=== PATIENT | male | born 1950 | race Caucasian/White ===

== ENCOUNTER 2024-04-04 17:32 | Inpatient (IN) ==
[2024-04-04] MEDS ORDERED: GLUCOPHAGE XR 24-HR PO ONE (17:37)
[2024-04-04] MEDS ORDERED: XYLOCAINE 2 % (PLAIN) ONE ×2 (17:37)
[2024-04-04] MEDS ORDERED: KETAMINE HCL ONE ×2 (17:37)
[2024-04-04] MEDS ORDERED: PRECEDEX INJ VIAL ONE (17:37)
[2024-04-04] MEDS ORDERED: CLEOCIN VIAL 600 MG 900 MG in D5W 50 ML IV 50 ML IV ONE (17:38)
[2024-04-04 19:14] LABS: BASOPHILS % (AUTO) 0.6 % (0.2-1.0); EOSINOPHILS % (AUTO) 0.8 % (0.9-2.9); HEMATOCRIT 35.5 % (42.0-54.0); HEMOGLOBIN 11.9 g/dL (13.5-18.0); LYMPHOCYTES # (AUTO) 2.2 X10^3/uL (1.3-2.9); LYMPHOCYTES % (AUTO) 37.8 % (21.0-51.0); MEAN CORPUSCULAR HEMOGLOBIN 28.6 pg (27.0-34.0); MEAN CORPUSCULAR HGB CONC 33.4 g/dL (33.0-35.0); MEAN CORPUSCULAR VOLUME 85.6 fL (80.0-100.0); MONOCYTES # (AUTO) 0.7 x10^3/uL (0.3-0.8); MONOCYTES % (AUTO) 11.7 % (0.0-13.0); NEUTROPHILS # (AUTO) 2.9 x10^3/uL (2.2-4.8); NEUTROPHILS % (AUTO) 49.1 % (42.0-75.0); PLATELET COUNT 173 X10^3/uL (150.0-450.0); RED BLOOD COUNT 4.15 X10^6/uL (4.7-6.0); RED CELL DISTRIBUTION WIDTH 18.1 % (11.6-16.5); WHITE BLOOD COUNT 5.9 X10^3/uL (3.6-10.0)
--- NOTE | 2024-04-04 19:18 | RAD ---
EXAM: CHEST X-RAYHISTORY: Screening CXR. Preoperative evaluation for cardiac and respiratory status.TECHNIQUE: PA and lateral chest x-ray.COMPARISON: None available.FINDINGS:There is aortic atherosclerosis. The heart size and mediastinum are within normal limits. The lung gonzalez and costophrenic angles are clear. There is no acute parenchymal infiltrate, pleural effusion, or pneumothorax seen. Multilevel DDD is seen in the middle and distal thoracic spine. The visualized bony structures are otherwise within normal limits.IMPRESSION:1. No evidence for acute cardiopulmonary disease seen.2. No evidence for active tuberculosis or other communicable diseases.THIS IS AN ELECTRONICALLY VERIFIED FINAL REPORT04/04/2024 7:14 PM - Electronically signed by Elisa Ruiz MD
[2024-04-04 19:29] LABS: ALBUMIN 3.3 g/dL (3.4-5.0); CALCIUM 9.3 mg/dL (8.5-10.1); CARBON DIOXIDE 25.5 mmol/L (21-32); COR CA(FOR HYPOALB) 9.9 mg/dL (8.5-10.1); CREATININE 1.54 mg/dL (0.70-1.30); POTASSIUM 4.3 mmol/L (3.5-5.1); TOTAL PROTEIN 7.2 g/dL (6.4-8.2)
[2024-04-04] MEDS: LR 1,000 ML IV 1,000 ML IV SCH (19:38)
[2024-04-04] MEDS ORDERED: NovoLIN R (or HumuLIN R) SUBCUT PRN (19:54)
[2024-04-04] MEDS ORDERED: PATIENT'S HOME MEDICATION PO SCH (20:00)
[2024-04-04] MEDS: SNACK - Diabetic Appropriate PO SCH (21:00)
[2024-04-04] MEDS: FARXIGA PO SCH (21:41)
[2024-04-04] MEDS: GLUCOPHAGE XR 24-HR PO SCH (22:05)
[2024-04-04 22:45] VITALS: BMI 26.2
[2024-04-04] MEDS: CLEOCIN 600 MG IV PREMIX 600 MG/50 ML BAG IV SCH (23:09)
--- NOTE | 2024-04-04 23:59 | DR.CONSULT ---
CONSULT Consultation for Day of: Date: 04/04/24 Chief Complaint Chief Complaint: non-healing wound to left heel Allergies Allergies Allergy/AdvReac Type Severity Reaction Status Date / Time No Known Allergies Allergy Verified 04/04/24 18:41 History of Present Illness History of Present Illness: this is a 73 year old male with history of diabetes, hypertension and high cholesterol who stepped on a screw back in January of this year and had a injury to the left heel which has been neglected and not healing. Now with significant cellulitis of the left heel with possible abscess. Past Medical History Past Medical History: Diabetes, Dyslipidemia and Hypertension Past Surgical History Surgical History: Ortho Surgery (Back surgery recently ) Family History Family Medical History: Diabetes Mellitus, Cancer and [place] Social History Does patient currently use any type of tobacco product: No Type of Tobacco Use: None Does any household member use tobacco: No Alcohol Use: None Drug Use: Marijuana Medications Home Medications: No Known Allergies Allergy (Verified 04/04/24 18:41) Protonix 40 milligrams daily lisinopril 2.5 milligrams daily Flomax 0.4 milligrams daily Viagra 100 milligrams a day Gabapentin 300 milligrams daily [id number] milligrams daily Novulin 70/30 metformin 1000 milligrams BID Glipizide 5 milligrams daily Jardiance 25 milligrams daily Metoprolol extended release 50 milligrams daily Review of Systems Constitutional: See HPI Eyes: No Symptoms Reported ENT: No Symptoms Reported Respiratory: No Symptoms Reported Cardiovascular: No Symptoms Reported Gastrointestinal: No Symptoms Reported Genitourinary: No Symptoms Reported Musculoskeletal: See HPI Skin: See HPI Neurological: No Symptoms Reported Physical Exam Vital Signs: Vital Signs Temperature 97.5 F Pulse Rate [Left] 70 Respiratory Rate 18 Blood Pressure [Left Arm] 162/73 O2 Sat by Pulse Oximetry 97 Oriented: Normal, Time, Person and Place Eyes: Normal Ear: Normal Nose: Normal Throat: Normal Respiratory: Clear Throughout Cardiovascular: Normal and Other (palpable femoral pulses bilaterally, no other pulses palpable either leg ) : Normal Auscultation: Bowel Sounds: Normal Palpation: Normal Tenderness: Normal Skin: Wound (cellulite approximately 8 centimeters in diameter, possible abscess left heel ) Musculoskeletal: Normal Psychiatric: Normal Mood Description: Calm Affect: Normal Speech Pattern: Clear Plan (1) Atherosclerosis of [place] arteries of extremities with rest pain, right leg: Status: Acute Plan: plan CT angiogram of aorta with runoff (2) Atherosclerosis of [place] arteries of extremities with rest pain, left leg: Status: Acute Plan: s above (3) Essential (primary) hypertension: Status: Acute Plan: home meds (4) Diabetes: Status: Acute Plan: home meds (5) Abscess of left heel: Status: Acute Plan: IV antibiotics , Podiatry to drain and debrode left heel tomorrow
--- NOTE | 2024-04-05 03:00 | CT ---
PROCEDURE: CTA abdomen and pelvis with bilateral iliofemoral runoff. HISTORY: NON HEALING WOUND TO LEFT PLANTAR HEEL; DM, HTN, GERD SX: BACK . TECHNIQUE: Axial images were performed through the abdomen and pelvis with bilateral iliofemoral runo ff with the administration of IV contrast with multiplanar reformations . 3D and MIPS reconstructions were performed and reviewed. Dose reduction techniques including Automated Exposure Control (AEC) an d adjustment of mA and kV were utilized . COMPARISON: None. TECHNICAL QUALITY: Satisfactory. FINDINGS: Clear lung bases. Liver, spleen, adrenals, pancreas show no abnormality. Kidneys show normal enhancement with no mass or obstruction. Small stones in the gallbladder with no inflammation and normal biliary tree. No ascites or pneumoperitoneum. No lymphadenopathy. No bowel obstruction or inflammation. Normal appendix. Pelvis shows no masses or free fluid normal urinary bladder. No acute bony abnormality. Previous posterior fusion lower lumbar spine. Vascular [id number] atherosclerosis abdominal aorta with no aneurysm or dissection. Major branches of t he abdominal aorta are unremarkable. Iliofemoral runoff through the pelvis shows atherosclerosis and no other significant abnormality. Some mild athero sclerotic calcifications superficial femoral on the right. Mild atherosclerosis popliteal artery on the right with mild narrowing. Right trifurcation vessels s how scattered mild athero sclerotic calcifications with no occlusive disease and three-vessel runoff at the ankle. Mild atherosclerosis adductor canal superficial femoral artery on the left without significant narrow ing. Mild atherosclerosis popliteal artery on the left without significant narrowing. Trifurcation vessel s on the left shows scattered [id number] atherosclerosis. Significant stenosis involving peron eal artery proximally. Significant stenosis involving posterior tibial artery on the left. One-vess el runoff at the ankle on the left side. No significant soft tissue abnormality involving lower extremities. IMPRESSION: 1. Occluded left peroneal and posterior tibial arteries with one-vessel runoff at the ankle. 2. No other significant vascular abnormality. 3. Cholelithiasis. THIS IS AN ELECTRONICALLY VERIFIED FINAL REPORT 04/05/2024 2:47 AM - Electronically signed by Andi Marks MD
[2024-04-05 05:25] LABS: BASOPHILS % (AUTO) 0.5 % (0.2-1.0); EOSINOPHILS % (AUTO) 0.7 % (0.9-2.9); HEMATOCRIT 32.4 % (42.0-54.0); HEMOGLOBIN 10.9 g/dL (13.5-18.0); LYMPHOCYTES # (AUTO) 2.4 X10^3/uL (1.3-2.9); LYMPHOCYTES % (AUTO) 50.3 % (21.0-51.0); MEAN CORPUSCULAR HEMOGLOBIN 28.8 pg (27.0-34.0); MEAN CORPUSCULAR HGB CONC 33.5 g/dL (33.0-35.0); MEAN CORPUSCULAR VOLUME 85.8 fL (80.0-100.0); MEAN PLATELET VOLUME 8.1 fL (7.4-11.0); MONOCYTES # (AUTO) 0.6 x10^3/uL (0.3-0.8); MONOCYTES % (AUTO) 12.3 % (0.0-13.0); NEUTROPHILS # (AUTO) 1.7 x10^3/uL (2.2-4.8); NEUTROPHILS % (AUTO) 36.2 % (42.0-75.0); PLATELET COUNT 157 X10^3/uL (150.0-450.0); RED BLOOD COUNT 3.78 X10^6/uL (4.7-6.0); RED CELL DISTRIBUTION WIDTH 18.2 % (11.6-16.5); WHITE BLOOD COUNT 4.8 X10^3/uL (3.6-10.0)
[2024-04-05 05:47] LABS: ALANINE AMINOTRANSFERASE 28 Units/L (12-78); ALBUMIN 2.9 g/dL (3.4-5.0); ALKALINE PHOSPHATASE 108 Units/L (46-116); ASPARTATE AMINO TRANSFERASE 27 Units/L (15-37); BLOOD UREA NITROGEN 15 mg/dL (7-18); CALCIUM 8.9 mg/dL (8.5-10.1); CARBON DIOXIDE 24.9 mmol/L (21-32); CHLORIDE 101 mmol/L (98-107); COR CA(FOR HYPOALB) 9.8 mg/dL (8.5-10.1); CREATININE 1.34 mg/dL (0.70-1.30); GLUCOSE 106 mg/dL (65-99); POTASSIUM 3.9 mmol/L (3.5-5.1); SODIUM 134 mmol/L (136-145); TOTAL PROTEIN 6.5 g/dL (6.4-8.2); eGFR NON BLACK RACES 55 (>60)
[2024-04-05] MEDS ORDERED: CLEOCIN 600 MG IV PREMIX 600 MG/50 ML BAG IV SCH (06:00)
[2024-04-05] MEDS: NOZIN NASAL SANITIZER TP ONE (06:34)
[2024-04-05] MEDS: OMNIPAQUE 350 mg/mL 100 mL BTL 100 ML ONE (07:23)
[2024-04-05] MEDS: NS 250 ML IV 250 ML IV ONE (07:23)
[2024-04-05] MEDS: NS 100 ML IV 0 ML ONE (07:23)
[2024-04-05] MEDS: OMNIPAQUE 350 mg/mL 50 mL BTL 50 ML ONE (07:24)
[2024-04-05] MEDS: HIBICLENS WASH EXT ONE (07:24)
[2024-04-05] MEDS: TOPROL XL PO SCH (08:10)
[2024-04-05] MEDS: ZESTRIL TAB 5 MG PO SCH (08:10)
--- NOTE | 2024-04-05 09:00 | DR.CONSULT ---
CONSULT Consultation for Day of: Date: 04/05/24 Chief Complaint Chief Complaint: Left Foot Infection Allergies Allergies Allergy/AdvReac Type Severity Reaction Status Date / Time No Known Allergies Allergy Verified 04/04/24 18:41 History of Present Illness History of Present Illness: Mr. Ashley is a 73 year old Male who presented to the [facility] yesterday with a foot infection to his left foot. He stated 2 months ago he stepped on a ingris nail and had been seeing a primary care doctor who had been treating it with just antibiotics. 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 He was instructed to go to Dr. Abel for admission to [facility]. Past Medical History Past Medical History: Diabetes, Dyslipidemia and Hypertension Past Surgical History Surgical History: Ortho Surgery (Back surgery recently ) Family History Family Medical History: Diabetes Mellitus, Cancer and [place] Social History Does patient currently use any type of tobacco product: No Type of Tobacco Use: None Does any household member use tobacco: No Alcohol Use: None Drug Use: Marijuana Medications Home Medications: No Known Allergies Allergy (Verified 04/04/24 18:41) Review of Systems Constitutional: No Symptoms Reported Physical Exam Vital Signs: Vital Signs Temperature 98.3 F Pulse Rate [Left] 61 Respiratory Rate 20 Blood Pressure [Left Arm] 129/61 O2 Sat by Pulse Oximetry 94 Cardiovascular: Other (DP and PT pulses are non-palpable, left foot. CFT WNL to all digits, left foot. ) Tenderness: Other (Tender to plantar left heel at area of wound. ) Skin: Wound (Wound measuring 0.3 cm circumferential with probing and undermining and is located at the plantar left calcaneus with surrounding erythema. the wound has palpable fluctuance noted underneath. ) Musculoskeletal: Left and Foot (Full MSK exam deferred due to infection. ) Plan (1) Atherosclerosis of [place] arteries of extremities with rest pain, right leg: Status: Acute Plan: Dr. Jeff ordering CTA, will follow. (2) Atherosclerosis of [place] arteries of extremities with rest pain, left leg: Status: Acute (3) Essential (primary) hypertension: Status: Acute (4) Diabetes: Status: Acute (5) Abscess of left heel: Status: Acute Plan: - NPO - MRI being obtained. - Patient will require immediate surgery due to extent of chronic infection in left plantar heel consisting of incision and drainage with debridement of calcaneus. - Patient will be placed on OR schedule. - Currently on Clindamycin. - Will obtain intra-operative cultures. - Consent will be obtained pre-operatively.
[2024-04-05] MEDS: ANCEF VIAL 1 GRAM ONE (10:30)
[2024-04-05] MEDS: NS 100 ML IV 100 ML ONE (10:30)
[2024-04-05] MEDS: NS 1,000 ML IV 1,000 ML ONE (10:30)
[2024-04-05] MEDS: ZOFRAN INJ 4 MG VIAL ONE (10:56)
[2024-04-05] MEDS: PEPCID 20 MG VIAL ONE (10:56)
[2024-04-05] MEDS: DIPRIVAN VIAL 20 ML ONE ×2 (10:56→11:35)
[2024-04-05] MEDS: BETADINE SOLN ONE (10:56)
[2024-04-05] MEDS: VERSED ONE (10:56)
[2024-04-05] MEDS: FENTANYL VIAL INJ 100 mcg ONE (10:56)
[2024-04-05] MEDS: MARCAINE 0.25% INJ ONE (11:11)
[2024-04-05] MEDS: TOBRAMYCIN SULFATE ONE (11:11)
[2024-04-05] MEDS: VANCOMYCIN HCL ONE (11:11)
--- NOTE | 2024-04-05 11:20 | MRI ---
EXAM:EXT LOWER JOINT W/O CONHISTORY:LEFT HEEL SORE/ PT TO HAVE SURGERY TODAY ;COMPARISON:None available.TECHNIQUE:Multiplanar multisequence MRI of the left ankle was obtained utilizing standard departmental protocol.FINDINGS:Plantar aspect of the heel does demonstrate soft tissue ulceration and induration and soft tissue swelling. There is a tiny blooming artifact measuring 3 mm just superficial to the plantar fascia (image 10 sagittal T1) which may be a small foreign body. There is significant edema in this fat and this is probably insinuating edema rather than abscess. The plantar fascia does appear heterogeneous and thickened with interstitial disruption in the medial cord and perifascial edema/fasciitis. The musculature is diffusely edematous nonspecific typically incidental but myositis not excluded. Diffuse ankle and dorsal foot subcutaneous edema noted. There is bone marrow edema of the plantar aspect of the calcaneus with a moderate plantar calcaneal spur. This is nonspecific bone marrow edema and the T1 signal does appear to be relatively preserved this site, most likely this is reactive bone marrow edema, it is slightly removed from the areas of ulceration with no convincing site of low T1 signal in the bone to suggest osteomyelitis definitively.Small superior calcaneal spur. The Achilles tendon appears normal.Posterior tibialis, flexor hallucis longus and flexor digitorum longus tendons appear normal. Peroneus brevis and longus tendons appear normal.Extensor tendons appear normal. Anterior and posterior distal tibiofibular ligaments are intact. Anterior and posterior talofibular ligaments are intact. Calcaneofibular ligament intact. Deep and superficial deltoid ligaments intact. No abnormal signal within the sinus tarsi.IMPRESSION:1. Plantar ulceration at the level of the proximal fascia/heel with subcutaneous edema/cellulitis evident and concern for 3 mm foreign body just superficial to the plantar fascia at this site as above. There is bone marrow edema within the plantar aspect of the calcaneus but there is preserved T1 signal and therefore this is believed to be reactive bone marrow edema rather than osteomyelitis at this time. Proximal plantar fasciitis is evident primarily medial cord with interstitial tearing present. No definable abscess on this noncontrast study.2. Generalized ankle and dorsal foot subcutaneous edema nonspecific, cellulitis in the differential. Also, nonspecific generalized muscle edema, typically incidental, myositis not excluded.THIS IS AN ELECTRONICALLY VERIFIED FINAL REPORT04/05/2024 11:17 AM - Electronically signed by Lazaro Arora MD
[2024-04-05] MEDS: EPHEDRINE SULFATE INJ ONE (11:21)
[2024-04-05] MEDS: OFIRMEV IV 1000 MG VIAL 1,000 MG/100 ML VIAL IV ONE (12:01)
[2024-04-05] MEDS: NS 1,000 ML IV 1,000 ML IV SCH (12:21)
[2024-04-05] MEDS: DILAUDID INJ IVP PRN (12:48)
[2024-04-05] MEDS: NORCO 5/325 MG TAB PO PRN (15:05)
--- NOTE | 2024-04-06 00:34 | NOTE.SOAP ---
Soap Note Note for Day of Date of Exam: 04/05/24 Subjective Data Subjective Data: Patient in OR today and had drainage of plantar calcaneal abscess and bone biopsy and placement of antibiotic beads. Objective Data Temperature: 97.9 F Pulse Rate: 72 Respiratory Rate: 19 Blood Pressure: 140/63 O2 Sat by Pulse Oximetry: 92 Objective Data: see above CTA shows no significant stenosis of occlusion either leg proximally with 3 vessel runoff of right leg and one vessel runoff left leg Assessment Assessment: as above Plan Plan: ABIs to see if arterial intervention would be required
[2024-04-06 06:03] LABS: BASOPHILS % (AUTO) 0.3 % (0.2-1.0); EOSINOPHILS % (AUTO) 0.2 % (0.9-2.9); HEMATOCRIT 29.2 % (42.0-54.0); LYMPHOCYTES % (AUTO) 17.7 % (21.0-51.0); MEAN CORPUSCULAR HEMOGLOBIN 29.4 pg (27.0-34.0); MEAN CORPUSCULAR HGB CONC 34.3 g/dL (33.0-35.0); MEAN CORPUSCULAR VOLUME 85.7 fL (80.0-100.0); MEAN PLATELET VOLUME 7.9 fL (7.4-11.0); MONOCYTES # (AUTO) 0.7 x10^3/uL (0.3-0.8); NEUTROPHILS % (AUTO) 69.8 % (42.0-75.0); PLATELET COUNT 133 X10^3/uL (150.0-450.0); RED BLOOD COUNT 3.41 X10^6/uL (4.7-6.0); RED CELL DISTRIBUTION WIDTH 17.9 % (11.6-16.5); WHITE BLOOD COUNT 5.8 X10^3/uL (3.6-10.0)
[2024-04-06 06:15] LABS: ALANINE AMINOTRANSFERASE 26 Units/L (12-78); ALBUMIN 2.9 g/dL (3.4-5.0); ALKALINE PHOSPHATASE 103 Units/L (46-116); ASPARTATE AMINO TRANSFERASE 31 Units/L (15-37); BLOOD UREA NITROGEN 10 mg/dL (7-18); CALCIUM 8.8 mg/dL (8.5-10.1); CARBON DIOXIDE 24.8 mmol/L (21-32); CHLORIDE 96 mmol/L (98-107); COR CA(FOR HYPOALB) 9.7 mg/dL (8.5-10.1); COR NA(FOR HYPERGLY) 130 mmol/L (136-145); CREATININE 1.17 mg/dL (0.70-1.30); GLUCOSE 148 mg/dL (65-99); POTASSIUM 4.2 mmol/L (3.5-5.1); SODIUM 129 mmol/L (136-145); TOTAL PROTEIN 6.5 g/dL (6.4-8.2); eGFR NON BLACK RACES > 60 (>60)
--- NOTE | 2024-04-06 08:49 | NOTE.SOAP ---
Soap Note Note for Day of Date of Exam: 04/06/24 Subjective Data Subjective Data: Patient is resting in bed. Complaining of pain to left leg at surgical area. Denies any nausea, vomiting, fevers, chills, shortness of breath, or calf pain. Objective Data Objective Data: Left Lower Extremity Exam: Surgical dressing was taken down. The plantar incision is loosely closed for drainage of the antibiotic beads. The lateral incision is healing. Minimal purulence coming from surgical area. Surrounding tissue appears to be viable. Redressed with 4x4s, Kerlix, DANIEL, Splint. No signs or symptoms concerning for DVT, PE, or Compartment Syndrome. Assessment Assessment: 73-year-old M POD#1 s/p Incision and Drainage with debridement of calcaneus and placement of antibiotic eluding device, left Plan Plan: - NWB to LLE. - Cultures showing currently no organisms. We will continue to monitor. - On Clindamycin. - Dr. Jeff following for vascular disease, ordering ABIs than will make decision on intervention. - The surgical site is loosely closed and will require debridement with possible delayed primary closure tomorrow on 04/07/2024. - NPO order placed.
[2024-04-06] MEDS: LEVSIN/MAALOX/LIDOC VISC PO ONE (13:22)
--- NOTE | 2024-04-06 14:06 | NOTE.SOAP ---
Soap Note Note for Day of Date of Exam: 04/06/24 Subjective Data Subjective Data: S/P drainage abscess left foot and placement of antibiotic beads Had CTA showinf one vessel runoff left leg via the anterior tibial with diseased left peroneal and posterior tibial Objective Data Temperature: 100.6 F Pulse Rate: 79 Respiratory Rate: 18 Blood Pressure: 157/65 Objective Data: Left foot unchanged , mild fever Assessment Assessment: Absecss left foot , CTA shows only distal disease. Will plan ABIS to see in the one vessel runoff provides adequate flow with no proximal impediment to arterial flow left leg. If ABIs not adequate will plan on table arteriogram left leg top see if the distal flow can be approved .If necessary would do next week and currently is sick and febrile . Plan Plan: as above
[2024-04-06] MEDS ORDERED: PHARMACY CONSULT - VANCOMYCIN XX SCH (17:00)
[2024-04-06] MEDS: TYLENOL 500 MG TAB EXTRA STRENGTH PO PRN (17:21)
[2024-04-06] MEDS: VANCOMYCIN IV *PREMIX 1 G/200 ML BAG 1 G/200 ML PIGGYBACK IV SCH (17:22)
[2024-04-06] MEDS: MAALOX or MYLANTA PO PRN (23:38)
[2024-04-07] MEDS: HIBICLENS WASH EXT ONE (04:38)
[2024-04-07 06:42] LABS: BASOPHILS % (AUTO) 0.2 % (0.2-1.0); EOSINOPHILS % (AUTO) 0.3 % (0.9-2.9); HEMATOCRIT 28.1 % (42.0-54.0); HEMOGLOBIN 9.7 g/dL (13.5-18.0); LYMPHOCYTES # (AUTO) 1.5 X10^3/uL (1.3-2.9); LYMPHOCYTES % (AUTO) 27.3 % (21.0-51.0); MEAN CORPUSCULAR HEMOGLOBIN 29.9 pg (27.0-34.0); MEAN CORPUSCULAR HGB CONC 34.7 g/dL (33.0-35.0); MEAN CORPUSCULAR VOLUME 86.2 fL (80.0-100.0); MEAN PLATELET VOLUME 7.9 fL (7.4-11.0); MONOCYTES # (AUTO) 0.8 x10^3/uL (0.3-0.8); MONOCYTES % (AUTO) 14.2 % (0.0-13.0); NEUTROPHILS # (AUTO) 3.2 x10^3/uL (2.2-4.8); PLATELET COUNT 134 X10^3/uL (150.0-450.0); RED BLOOD COUNT 3.25 X10^6/uL (4.7-6.0); RED CELL DISTRIBUTION WIDTH 18.8 % (11.6-16.5); WHITE BLOOD COUNT 5.5 X10^3/uL (3.6-10.0)
[2024-04-07 06:56] LABS: ALANINE AMINOTRANSFERASE 24 Units/L (12-78); ALBUMIN 2.8 g/dL (3.4-5.0); ALKALINE PHOSPHATASE 89 Units/L (46-116); ASPARTATE AMINO TRANSFERASE 32 Units/L (15-37); BLOOD UREA NITROGEN 12 mg/dL (7-18); CALCIUM 8.5 mg/dL (8.5-10.1); CARBON DIOXIDE 21.6 mmol/L (21-32); CHLORIDE 100 mmol/L (98-107); COR CA(FOR HYPOALB) 9.5 mg/dL (8.5-10.1); CREATININE 0.92 mg/dL (0.70-1.30); GLUCOSE 80 mg/dL (65-99); POTASSIUM 3.7 mmol/L (3.5-5.1); SODIUM 134 mmol/L (136-145); TOTAL PROTEIN 6.4 g/dL (6.4-8.2); eGFR NON BLACK RACES > 60 (>60)
[2024-04-07] MEDS: ZOFRAN INJ 4 MG VIAL IVP PRN (08:25)
[2024-04-07] MEDS: NOZIN NASAL SANITIZER TP ONE (08:33)
[2024-04-07] MEDS: LEXAPRO PO SCH (10:13)
[2024-04-07] MEDS: MERREM VIAL 1 G in NS 100 ML IV 100 ML IV SCH (10:29)
[2024-04-07] MEDS: D5 LR 1,000 ML 1,000 ML IV SCH (11:42)
[2024-04-07] MEDS: DIPRIVAN VIAL 20 ML ONE (12:43)
[2024-04-07] MEDS: ZOFRAN INJ 4 MG VIAL ONE (12:44)
[2024-04-07] MEDS: PEPCID 20 MG VIAL ONE (12:44)
[2024-04-07] MEDS: REGLAN INJ 10 MG VIAL ONE (12:44)
[2024-04-07] MEDS: VERSED ONE (12:45)
[2024-04-07] MEDS: FENTANYL VIAL INJ 100 mcg ONE (12:45)
[2024-04-07] MEDS: BETADINE SOLN ONE (12:46)
[2024-04-07] MEDS: NS 1,000 ML IV 1,000 ML ONE (12:57)
[2024-04-07] MEDS: MARCAINE 0.25% INJ ONE (13:27)
[2024-04-07] MEDS: EPHEDRINE SULFATE INJ ONE (13:53)
--- NOTE | 2024-04-07 17:03 | NOTE.SOAP ---
Soap Note Note for Day of Date of Exam: 04/07/24 Subjective Data Subjective Data: Doing well after I&D left foot. CT shows only AT runoff left foot . Objective Data Temperature: 98.1 F Pulse Rate: 70 Respiratory Rate: 18 Blood Pressure: 115/54 O2 Sat by Pulse Oximetry: 97 Objective Data: Left foot cool. ABIS perfromed left leg and are effectively zero both DP and PT Assessment Assessment: Ischemic left foot s/p I & D . Plan Plan: Will plan ontable arteriogram next Tueday to see if better outflow can be performed left foot . Begin therapuetic Lovenox .
[2024-04-07] MEDS: PHARMACY COMMENT IV NR (20:20)
[2024-04-07] MEDS: ALPRAZOLAM ODT PO PRN (20:35)
[2024-04-07 20:43] LABS: CREATININE 1.02 mg/dL (0.70-1.30); VANCOMYCIN,TROUGH 8.4 ug/mL (15-20)
[2024-04-08] MEDS: RESTORIL CAP 15 MG PO PRN (00:22)
[2024-04-08 05:56] LABS: BASOPHILS % (AUTO) 0.4 % (0.2-1.0); EOSINOPHILS % (AUTO) 0.7 % (0.9-2.9); HEMATOCRIT 27.7 % (42.0-54.0); HEMOGLOBIN 9.5 g/dL (13.5-18.0); LYMPHOCYTES # (AUTO) 1.1 X10^3/uL (1.3-2.9); LYMPHOCYTES % (AUTO) 23.7 % (21.0-51.0); MEAN CORPUSCULAR HEMOGLOBIN 29.4 pg (27.0-34.0); MEAN CORPUSCULAR HGB CONC 34.5 g/dL (33.0-35.0); MEAN CORPUSCULAR VOLUME 85.4 fL (80.0-100.0); MEAN PLATELET VOLUME 7.7 fL (7.4-11.0); MONOCYTES # (AUTO) 0.6 x10^3/uL (0.3-0.8); MONOCYTES % (AUTO) 12.7 % (0.0-13.0); NEUTROPHILS # (AUTO) 2.9 x10^3/uL (2.2-4.8); NEUTROPHILS % (AUTO) 62.5 % (42.0-75.0); PLATELET COUNT 146 X10^3/uL (150.0-450.0); RED BLOOD COUNT 3.25 X10^6/uL (4.7-6.0); RED CELL DISTRIBUTION WIDTH 18.6 % (11.6-16.5); WHITE BLOOD COUNT 4.7 X10^3/uL (3.6-10.0)
[2024-04-08 06:12] LABS: ALANINE AMINOTRANSFERASE 25 Units/L (12-78); ALBUMIN 2.8 g/dL (3.4-5.0); ALKALINE PHOSPHATASE 89 Units/L (46-116); ASPARTATE AMINO TRANSFERASE 32 Units/L (15-37); BLOOD UREA NITROGEN 9 mg/dL (7-18); CALCIUM 8.5 mg/dL (8.5-10.1); CARBON DIOXIDE 22.7 mmol/L (21-32); CHLORIDE 100 mmol/L (98-107); COR CA(FOR HYPOALB) 9.5 mg/dL (8.5-10.1); CREATININE 0.93 mg/dL (0.70-1.30); GLUCOSE 86 mg/dL (65-99); POTASSIUM 3.6 mmol/L (3.5-5.1); SODIUM 133 mmol/L (136-145); TOTAL PROTEIN 6.6 g/dL (6.4-8.2); eGFR NON BLACK RACES > 60 (>60)
[2024-04-08] MEDS ORDERED: CONSULT PHARMACY - POTASSIUM & MAGNESIUM XX SCH (07:00)
[2024-04-08] MEDS: NS 1,000 ML IV 1,000 ML with MAGNESIUM SULFATE 50% INJ VIAL 2 G IV SCH (08:32)
[2024-04-08] MEDS: K-DUR TAB 20 MEQ PO SCH (08:34)
[2024-04-08] MEDS: LEXAPRO ONE (08:34)
[2024-04-08 08:51] VITALS: BP 153/69; PULSE 74; RESP 20; TEMP 98.8; O2SAT 95
[2024-04-08] MEDS: LOVENOX INJ 40 MG SYR SC SCH (09:41)
--- NOTE | 2024-04-08 10:13 | NOTE.SOAP ---
Soap Note Note for Day of Date of Exam: 04/08/24 Subjective Data Subjective Data: Patient is resting in bed, no complaints. He wants to go home. Objective Data Objective Data: Left Lower Extremity Exam: No strikethrough noted. Dressing clean, dry, and intact. Splint in place. No calf pain. No signs or symptoms for PE or DVT. Assessment Assessment: 73 year old M POD#1 antibiotic bead exchange with delayed primary closure, left Plan Plan: - Patient NWB to E - Home health will come 3x/week to perform dressing changes. - Will follow up with cultures from 04/07/24. - Script dispensed for Lovenox. - Patient will follow up with us at the [facility]. - Okay for discharge.
== END 2024-04-08 10:55 | disposition home health service (06) | DRG 629 ==
LOC: MED/SURG 17:37
PROVIDERS: ADMIT Obstetrics & Gynecology Obstetrics; ATTEND Obstetrics & Gynecology Obstetrics
PROC: DEBRIDE (2024-04-07 18:45)